=== PATIENT | female | born 1990 | race Caucasian/White ===

== ENCOUNTER 2017-01-21 17:19 | Inpatient (IN) | payer BC ==
[2017-01-21] VITALS (71 sets, daily range): BP systolic 124–186; BP diastolic 65–120; PULSE 70–85; RESP 13–20; TEMP 98.9; O2SAT 96–100
[~2017-01-21] VITALS: Ht 165.1 cm; Wt 122.5 kg
[2017-01-21] MEDS ORDERED: TERBUTALINE INJ 1 MG/ML AMP ONE (19:10)
[2017-01-21 19:39] LABS: BACTERIA, URINE OCC /hpf; BLOOD, URINE NEG (NEG); COMMENT (UR) CULT NOT INDICATED; CULTURE IF INDICATED CULT NOT INDICATED; GLUCOSE,URINE NEG (NEG); KETONE, URINE NEG (NEG); MUCUS URINE FEW /lpf (OCC); NITRITE,URINE NEG (NEG); PH, URINE 6.5 (5.0-8.5); SQUAMOUS EPITHELIAL CELL URINE 2 /hpf (0-5); URINE COLOR LIGHT-YELLOW (YELLW/STRAW)
--- NOTE | 2017-01-21 20:04 | PD ---
HPI Chief Complaint Abdominal pain 1 day Chest pain 1 day 36 weeks Date Seen: Jan 21, 2017 Time Seen: 19:00 Travel History International Travel<30 Days: No Contact w/Intl Traveler<30Days: No Known Affected Area: No History of Present Illness HPI 26 yo at 36 weeks. EDC 02-18-[address] Jewell. Pt presents with c/o abdominal pain and chest pain last night. Constant, dull. Eased off some last night and pt was able to sleep. This morning pain returned. No vaginal bleeding or leaking. Denies headaches, vision changes or RUQ pain. BPs noted to be elevated 150-160 systolic and diastolics 90s. Pt states at her last office visit last week, proteinuria was noted and pt was asked to complete 24 hour urine collection for total protein and clearance. There was a mistake with the requisition and lab was not completed. Pt had prior C Section and is scheduled for repeat LTCS 02-12-2017. Weeks Gestation: 36 Para: 1 : 2 History Past Medical History Narrative Medical Elevated BMI Obstetric History Obstetric History Previous C Section Past Surgical History Narrative Surgical Herniated lumbar disc surgery 03/2009 [facility] [place] Cholecystectomy 2012 Family History Family History: Negative Social History Alcohol Use: No Tobacco Use: No Substance Abuse: No Allergies-Medications (Allergen,Severity, Reaction): Coded Allergies: No Known Allergies (Unverified , 01/21/17) Review of Systems Except as stated in HPI: all other systems reviewed are Neg Physical Exam Vital Signs Date Time Temp Pulse Resp B/P (MAP) Pulse Ox O2 Delivery O2 Flow Rate FiO2 01/21/17 17:24 98.9 84 13 186/120 (142) 96 Narrative GENERAL: Well-nourished, well-developed patient. SKIN: Warm and dry. HEAD: Normocephalic and atraumatic. EYES: No scleral icterus. No injection or drainage. ENT: No nasal drainage noted. Mucous membranes pink. Airway patent. NECK: Supple, trachea midline. No JVD. CARDIOVASCULAR: Regular rate and rhythm without murmurs, gallops, or rubs. RESPIRATORY: Breath sounds equal bilaterally. No accessory muscle use. BREASTS: Bilateral exam showed no masses , no retractions, no nipple discharge. ABDOMEN/GI: Abdomen soft, non-tender, bowel sounds present, no rebound, no guarding Gravid to [36] weeks size GENITOURINARY: External Genitalia: intact and normal in appearance Cervix: [soft] Dilatation: [closed] Effacement: [30%] Station: [-3] Presentation: [-] Membranes: [intact] Uterine Contractions: [every 3 minutes] FHT's: Category: [1] Baseline: [130s] Reactive: [-] Variability: [moderate] Decels: [none] EXTREMITIES: No cyanosis or edema. BACK: Nontender without obvious deformity. No CVA tenderness. NEUROLOGICAL: Awake and alert. Motor and sensory grossly within normal limits. Five out of 5 muscle strength in all muscle groups. Normal speech. Patella DTRs wnl, no ankle clonus, trace pedal edema. Data Data Vital Signs Reviewed: Yes Orders Orders Electrocardiogram (01/21/17 17:32) Complete Blood Count With Diff (01/21/17 17:32) Basic Metabolic Panel (Bmp) (01/21/17 17:32) Ckmb (Isoenzyme) Profile (01/21/17 17:32) Troponin I (01/21/17 17:32) Vital Signs (Adult) .ON ADMISSION (01/21/17 19:02) ^ Labor Status (01/21/17 19:02) Urinalysis - C+S If Indicated (01/21/17 19:02) Diet Liquid (01/22/17 Breakfast) Terbutaline Inj (Brethine Inj) (01/21/17 19:10) Labs Laboratory Tests Test 01/21/17 18:55 Urine Color LIGHT-YELLOW Urine Turbidity CLEAR Urine pH 6.5 Urine Specific [place] 1.012 Urine Protein 100 Urine Glucose (UA) NEG Urine Ketones NEG Urine Occult Blood NEG Urine Nitrite NEG Urine Bilirubin NEG Urine Urobilinogen LESS THAN 2.0 Urine Leukocyte Esterase TRACE Urine RBC LESS THAN 1 Urine WBC 1 Urine Squamous Epithelial Cells 2 Urine Bacteria OCC Urine Mucus FEW Microscopic Urinalysis Comment CULT NOT INDICATED MDM Medical Record Reviewed: Yes Plan 26 yo at 36 weeks . Presents with chest pain and abdominal pain. Chest pain 'ruled out' in ER prior to arrival on L&D. contractions noted, no cervical dilatation. Plan IV hydration, and Terbulatine 0.25mg SCx 1 Also Pepcid 20mg IV x 1 BP elevated, and PIH panel/Urine protein/Creatinine ratio sent. Normal DTRs/ no ankle clonus, trace pedal edema. Labs were reviewed and AST 58, ALT 60 with urine protein 100. Uric Acid is 6.5. Urine protein/ Creatinine ratio is still pending. Pt is scheduled for repeat C Section at [address] Salter. Plan is to start Magnessium sulphate for eclampsia prophylaxis, and plan for C section in AM. NPO post midnight. Diagnosis Diagnosis: Primary Impression: with 36 completed weeks gestation Additional Impressions: Abdominal pain affecting Chest pain Pre-eclampsia Andrea Marrufo MD Jan 21, 2017 20:04
[2017-01-21 20:27] LABS: AUTOMATED NEUTROPHIL # 11.7 TH/MM3 (1.8-7.7); BASOPHIL # 0.1 TH/MM3 (0-0.2); BASOPHIL % 0.4 % (0.0-2.0); EOSINOPHIL # 0.1 TH/MM3 (0-0.4); EOSINOPHIL % 0.5 % (0.0-4.0); HEMATOCRIT 36.5 % (35.0-46.0); HEMO FLAGS DIFF FINAL; LYMPH % 20.7 % (9.0-44.0); LYMPHOCYTE # 3.3 TH/MM3 (1.0-4.8); MEAN CELL VOLUME 84.7 FL (80.0-100.0); MEAN CORPUSCULAR HEMOGLOBIN 27.6 PG (27.0-34.0); MEAN CORPUSCULAR HGB CONC 32.5 % (32.0-36.0); MONO % 4.6 % (0.0-8.0); NEUT % 73.8 % (16.0-70.0); PLATELET COUNT 228 TH/MM3 (150-450); RED BLOOD COUNT 4.31 MIL/MM3 (4.00-5.30); RED CELL DISTRIBUTION WIDTH 16.3 % (11.6-17.2); WHITE BLOOD COUNT 15.9 TH/MM3 (4.0-11.0)
[2017-01-21 20:57] LABS: ANION GAP 10 MEQ/L (5-15); BICARBONATE 22.5 MEQ/L (21.0-32.0); BLOOD UREA NITROGEN 9 MG/DL (7-18); CHLORIDE 106 MEQ/L (98-107); GLOMERULAR FILTRATION RATE 87 ML/MIN (>89); POTASSIUM 3.8 MEQ/L (3.5-5.1); SODIUM (NA) 138 MEQ/L (136-145)
[2017-01-21] MEDS ORDERED: FAMOTIDINE 20 MG/2 ML VIAL IV PUSH SCH (21:00)
[2017-01-21 21:13] LABS: CREATINE KINASE 34 U/L (26-192)
[2017-01-21 21:42] LABS: URIC ACID 6.5 MG/DL (2.6-6.0)
[2017-01-21] MEDS ORDERED: LABETALOL HCL 100 MG/20 ML VIAL IV PUSH ONE (22:00)
[2017-01-21] MEDS ORDERED: LACTATED RINGER'S 1000 ML INJ 1,000 ML IV PRN (22:02)
[2017-01-21] MEDS: LACTATED RINGER'S 1000 ML INJ 1,000 ML IV SCH ×2 (22:02→22:30)
[2017-01-21] MEDS ORDERED: MINERAL OIL 10 ML VIAL TOPICAL PRN (22:15)
[2017-01-21] MEDS ORDERED: LABETALOL HCL 100 MG/20 ML VIAL IV PUSH PRN (22:15)
[2017-01-21] MEDS ORDERED: MAGNESIUM SULFATE 4 GM PREMIX 100 ML IV ONE (22:15)
[2017-01-21] MEDS ORDERED: LIDOCAINE HCL 1% 50 ML VIAL INFIL PRN (22:15)
[2017-01-21] MEDS ORDERED: CALCIUM GLUCONATE 10% 1 GM/10 ML VIAL IV PUSH PRN (22:15)
[2017-01-21] MEDS ORDERED: LIDOCAINE HCL 1% 50 ML VIAL I-DERMAL PRN (22:15)
[2017-01-21] MEDS ORDERED: SODIUM CHLORID 0.9% 500 ML INJ 500 ML IV PRN (22:15)
[2017-01-21] MEDS ORDERED: OXYTOCIN 30 UNITS-500ML PREMIX 500 ML IV ONE (22:15)
[2017-01-21] MEDS ORDERED: ONDANSETRON HCL 4 MG/2 ML VIAL IV PUSH PRN (22:15)
[2017-01-21] MEDS ORDERED: ACETAMINOPHEN 325 MG TAB PO PRN (22:15)
[2017-01-21] MEDS ORDERED: CITRIC ACID-SODIUM CITRATE LIQ 30 ML UDC PO SCH (22:15)
[2017-01-21] MEDS ORDERED: SODIUM CHLORIDE 0.9% FLUSH 5 ML FLUSH IV FLUSH PRN (22:15)
--- NOTE | 2017-01-21 22:30 | HHI.HP ---
HPI Chief Complaint 36 week IUP Abdominal pain/Chest pain 1 day Elevated BP Travel History International Travel<30 Days: No Contact w/Intl Traveler<30Days: No Known Affected Area: No History of Present Illness HPI 26 yo at 36 weeks. EDC 02-18-[address] Jewell. Pt presents with c/o abdominal pain and chest pain last night. Constant, dull. Eased off some last night and pt was able to sleep. This morning pain returned. No vaginal bleeding or leaking. Denies headaches, vision changes or RUQ pain. BPs noted to be elevated 150-160 systolic and diastolics 90s. Pt states at her last office visit last week, proteinuria was noted and pt was asked to complete 24 hour urine collection for total protein and clearance. There was a mistake with the requisition and lab was not completed. Pt had prior C Section and is scheduled for repeat LTCS 02-12-2017. Testing came back with elevated AST, ALT, Uric Acid and Urine protein 100, Blood pressures remained elevated with systolic 15-160 and diastolic 90s. Diagnosis of pre-eclampsia formed. Discussed with Dr sheehan, and plan is to start admit Magnesium Sulphate for eclampsia prophylaxis, and schedule for C Section in AM, if stable overnight,. Weeks Gestation: 36 Para: 1 : 2 History Past Medical History Narrative Medical Obesity Obstetric History Obstetric History Previous C Section. Past Surgical History Narrative Surgical [place] [facility] [place], Lumbar herniated disc surgery 2008. Social History Alcohol Use: No Tobacco Use: No Substance Abuse: No Allergies-Medications (Allergen,Severity, Reaction): Coded Allergies: No Known Allergies (Unverified , 01/21/17) Review of Systems Except as stated in HPI: all other systems reviewed are Neg Physical Exam Vital Signs Date Time Temp Pulse Resp B/P (MAP) Pulse Ox O2 Delivery O2 Flow Rate FiO2 01/21/17 21:30 72 20 100 01/21/17 21:25 71 100 01/21/17 21:25 73 01/21/17 21:20 70 01/21/17 21:20 70 100 01/21/17 21:16 75 163/93 (116) 01/21/17 21:15 72 01/21/17 21:15 72 100 01/21/17 21:05 74 01/21/17 21:01 77 165/87 (113) 01/21/17 21:00 75 01/21/17 20:55 71 01/21/17 20:52 18 01/21/17 20:50 74 01/21/17 20:46 73 174/87 (116) 01/21/17 20:45 18 01/21/17 20:45 74 01/21/17 20:40 79 01/21/17 20:35 72 01/21/17 20:31 71 166/82 (110) 01/21/17 20:30 18 01/21/17 20:30 77 01/21/17 20:25 79 01/21/17 20:20 74 01/21/17 20:16 80 142/67 (92) 01/21/17 20:15 80 01/21/17 19:15 18 01/21/17 19:14 78 168/92 (117) 01/21/17 19:10 78 01/21/17 19:05 80 01/21/17 19:00 82 01/21/17 17:24 98.9 84 13 186/120 (142) 96 Narrative GENERAL: Well-nourished, well-developed patient. SKIN: Warm and dry. HEAD: Normocephalic and atraumatic. EYES: No scleral icterus. No injection or drainage. ENT: No nasal drainage noted. Mucous membranes pink. Airway patent. NECK: Supple, trachea midline. No JVD. CARDIOVASCULAR: Regular rate and rhythm without murmurs, gallops, or rubs. RESPIRATORY: Breath sounds equal bilaterally. No accessory muscle use. BREASTS: Bilateral exam showed no masses , no retractions, no nipple discharge. ABDOMEN/GI: Abdomen soft, non-tender, bowel sounds present, no rebound, no guarding Gravid to [36] weeks size Fundal Height: [-] GENITOURINARY: External Genitalia: intact and normal in appearance Cervix: [soft] Dilatation: [closed] Effacement: [50%] Station: [-2] Presentation: [vertex] Membranes: [intact] Uterine Contractions: [none] FHT's: Category: [1] Baseline: [130] Reactive: [-] Variability: [moderate] Decels: [none] EXTREMITIES: No cyanosis or edema. BACK: Nontender without obvious deformity. No CVA tenderness. NEUROLOGICAL: Awake and alert. Motor and sensory grossly within normal limits. Five out of 5 muscle strength in all muscle groups. Normal speech. Caprini VTE Risk Assessment Caprini VTE Risk Assessment: No/Low Risk (score <= 1) Caprini Risk Assessment Model Point Value = 1 Point Value = 2 Point Value = 3 Point Value = 5 Age 41-60 Minor surgery BMI > 25 kg/m2 Swollen legs Varicose veins or History of unexplained or recurrent spontaneous Oral contraceptives or hormone replacement Sepsis (< 1 month) Serious lung disease, including pneumonia (< 1 month) Abnormal pulmonary function Acute myocardial infarction Congestive heart failure (< 1 month) History of inflammatory bowel disease Medical patient at bed rest Age 61-74 Arthroscopic surgery Major open surgery (> 45 min) Laparoscopic surgery (> 45 min) Malignancy Confined to bed (> 72 hours) Immobilizing plaster cast Central venous access Age >= 75 History of VTE Family history of VTE Factor V Leiden Prothrombin [id number] Lupus anticoagulant Anticardiolipin antibodies Elevated serum homocysteine Heparin-induced thrombocytopenia Other congenital or acquired thrombophilia Stroke (< 1 month) Elective arthroplasty Hip, pelvis, or leg fracture Acute spinal cord injury (< 1 month) Prophylaxis Regimen Total Risk Factor Score Risk Level Prophylaxis Regimen 0-1 Low Early ambulation 2 Moderate Order ONE of the following: *Sequential Compression Device (SCD) *Heparin 5000 units SQ BID 3-4 Higher Order ONE of the following medications: *Heparin 5000 units SQ TID *Enoxaparin/Lovenox 40 mg SQ daily (WT < 150 kg, CrCl > 30 mL/min) *Enoxaparin/Lovenox 30 mg SQ daily (WT < 150 kg, CrCl > 10-29 mL/min) *Enoxaparin/Lovenox 30 mg SQ BID (WT < 150 kg, CrCl > 30 mL/min) AND/OR *Sequential Compression Device (SCD) 5 or more Highest Order ONE of the following medications: *Heparin 5000 units SQ TID (Preferred with Epidurals) *Enoxaparin/Lovenox 40 mg SQ daily (WT < 150 kg, CrCl > 30 mL/min) *Enoxaparin/Lovenox 30 mg SQ daily (WT < 150 kg, CrCl > 10-29 mL/min) *Enoxaparin/Lovenox 30 mg SQ BID (WT < 150 kg, CrCl > 30 mL/min) AND *Sequential Compression Device (SCD) Data Data Orders Orders Electrocardiogram (01/21/17 17:32) Complete Blood Count With Diff (01/21/17 17:32) Basic Metabolic Panel (Bmp) (01/21/17 17:32) Ckmb (Isoenzyme) Profile (01/21/17 17:32) Troponin I (01/21/17 17:32) Vital Signs (Adult) .ON ADMISSION (01/21/17 19:02) ^ Labor Status (01/21/17 19:02) Urinalysis - C+S If Indicated (01/21/17 19:02) Terbutaline Inj (Brethine Inj) (01/21/17 19:10) Famotidine Inj (Pepcid Inj) (01/21/17 21:00) Vital Signs (Adult) .ON ADMISSION (01/21/17 20:18) ^ Labor Status (01/21/17 20:18) ^ Non Stress Test (01/21/17:18) Protein Creat Ratio, Random Ur (01/21/17 20:58) Ast (Sgot) (01/21/17 21:12) Alt (Sgpt) (01/21/17 21:12) Uric Acid (01/21/17 21:12) Labetalol Inj (Trandate Inj) (01/21/17 22:00) Admit To Inpatient (01/21/17 ) Code Status (01/21/17 22:02) Vital Signs (Adult) .Per protocol (01/21/17 22:02) Heart (01/21/17 22:02) Amnioinfusion (01/21/17 22:02) Urinary Catheter Management .ONCE (01/21/17 22:02) Diet Npo (01/22/17 Breakfast) Lactated Ringer's 1000 Ml Inj (Lr 1000 M (01/21/17 22:02) Lactated Ringer's 1000 Ml Inj (Lr 1000 M (01/21/17 22:02) Sodium Chlorid 0.9% 500 Ml Inj (Ns 500 M (01/21/17 22:15) Sodium Chlor 0.9% 1000 Ml Inj (Ns 1000 M (01/21/17 23:00) Lidocaine 1% Inj (50 Ml) (Xylocaine 1% I (01/21/17 22:15) Citric Acid-Sodium Citrate Liq (Bicitra (01/21/17 22:15) Fentanyl Inj (Fentanyl Inj) (01/21/17 22:15) Fentanyl Inj (Fentanyl Inj) (01/21/17 22:15) Hold Clot (01/21/17 22:02) Abo/Rh Blood Type (01/21/17 22:02) Type And Screen (01/21/17 22:02) Resp Oxygen Non Rebreathe Mask (01/21/17 ) ^ Epidural / Intrathecal Infus (01/21/17 22:02) Oxytocin 30 Units-500ml Premix (Pitocin (01/21/17 22:15) Lidocaine 1% Inj (50 Ml) (Xylocaine 1% I (01/21/17:15) Light Mineral Oil (Muri-Lube Oil) (01/21/17 22:15) Inpatient Certification (01/21/17 ) Activity Bed Rest (01/21/17 22:02) Intake + Output Q1H (01/21/17 22:02) Heart CONTINUOUS (01/21/17 22:02) ^ Check Deep Tendon Reflexes Q1H (01/21/17 22:02) Lactated Ringer's 1000 Ml Inj (Lr 1000 M (01/21/17 22:02) Sodium Chloride 0.9% Flush (Ns Flush) (01/21/17 22:15) Sodium Chloride 0.9% Flush (Ns Flush) (01/22/17 09:00) Magnesium Sulfate 40 Gm Premix (Magnesiu (01/21/17 22:02) Labetalol Inj (Trandate Inj) (01/21/17 22:15) Calcium Gluconate Inj (Calcium Gluconate (01/21/17 22:15) Acetaminophen (Tylenol) (01/21/17 22:15) Ondansetron Inj (Zofran Inj) (01/21/17 22:15) Hepatic Functional Panel (01/22/17 06:00) Cbc No Diff, Includes Plts (01/22/17 06:00) Uric Acid (01/22/17 06:00) Magnesium Sulfate 4 Gm Premix (Magnesium (01/21/17 22:15) Ob (2e) Additional Admit Info (01/21/17 22:13) Labs Laboratory Tests Test 01/21/17 18:55 01/21/17 20:00 Urine Color LIGHT-YELLOW Urine Turbidity CLEAR Urine pH 6.5 Urine Specific [place] 1.012 Urine Protein 100 Urine Glucose (UA) NEG Urine Ketones NEG Urine Occult Blood NEG Urine Nitrite NEG Urine Bilirubin NEG Urine Urobilinogen LESS THAN 2.0 Urine Leukocyte Esterase TRACE Urine RBC LESS THAN 1 Urine WBC 1 Urine Squamous Epithelial Cells 2 Urine Bacteria OCC Urine Mucus FEW Microscopic Urinalysis Comment CULT NOT INDICATED White Blood Count 15.9 Red Blood Count 4.31 Hemoglobin 11.9 Hematocrit 36.5 Mean Corpuscular Volume 84.7 Mean Corpuscular Hemoglobin 27.6 Mean Corpuscular Hemoglobin Concent 32.5 Red Cell Distribution Width 16.3 Platelet Count 228 Mean Platelet Volume 9.1 Neutrophils (%) (Auto) 73.8 Lymphocytes (%) (Auto) 20.7 Monocytes (%) (Auto) 4.6 Eosinophils (%) (Auto) 0.5 Basophils (%) (Auto) 0.4 Neutrophils # (Auto) 11.7 Lymphocytes # (Auto) 3.3 Monocytes # (Auto) 0.7 Eosinophils # (Auto) 0.1 Basophils # (Auto) 0.1 CBC Comment DIFF FINAL Differential Comment Blood Urea Nitrogen 9 Creatinine 0.80 Random Glucose 79 Calcium Level 9.4 Sodium Level 138 Potassium Level 3.8 Chloride Level 106 Carbon Dioxide Level 22.5 Anion Gap 10 Estimat Glomerular Filtration Rate 87 Uric Acid 6.5 Aspartate Amino Transf (AST/SGOT) 58 Alanine Aminotransferase (ALT/SGPT) 60 Total Creatine Kinase 34 Troponin I LESS THAN 0.02 Assessment/Plan Problem List: (1) Pre-eclampsia ICD Codes: O14.90 - Unspecified pre-eclampsia, unspecified trimester Status: Acute (2) Chest pain ICD Codes: R07.9 - Chest pain, unspecified Status: Acute (3) Abdominal pain affecting ICD Codes: O26.899 - Other specified related conditions, unspecified trimester; R10.9 - Unspecified abdominal pain Status: Acute (4) with 36 completed weeks gestation ICD Codes: Z3A.36 - 36 weeks gestation of ; R10.9 - Unspecified abdominal pain Status: Acute Assessment and Plan Admit inpatient. Mag Sulphate for eclampsia prophylaxis. Previous C Section. Will order limited OB US in AM. Repeat [facility] labs in AM. Plan for C Section in AM, NPO after midnight. Andrea Marrufo MD Jan 21, 2017 22:30
[2017-01-21] MEDS: MAGNESIUM SULFATE 40 GM PREMIX 1,000 ML IV SCH (22:31)
[2017-01-21] MEDS ORDERED: SODIUM CHLOR 0.9% 1000 ML INJ 1,000 ML IV PRN (23:00)
[2017-01-21] MEDS ORDERED: PREN29TA PO (23:31)
[2017-01-22] VITALS (111 sets, daily range): BP systolic 123–161; BP diastolic 71–95; PULSE 18–91; RESP 18; TEMP 97.8–98; O2SAT 100
[2017-01-22] MEDS ORDERED: ceFAZolin 2 GM PREMIX 50 ML IV SCH (00:45)
[2017-01-22] MEDS: LACTATED RINGER'S 1000 ML INJ 1,000 ML IV SCH ×2 (05:07→11:22)
[2017-01-22 05:58] LABS: HEMATOCRIT 32.8 % (35.0-46.0); MEAN CELL VOLUME 84.3 FL (80.0-100.0); MEAN CORPUSCULAR HEMOGLOBIN 28.7 PG (27.0-34.0); MEAN CORPUSCULAR HGB CONC 34.1 % (32.0-36.0); PLATELET COUNT 187 TH/MM3 (150-450); RED CELL DISTRIBUTION WIDTH 16.5 % (11.6-17.2); REVIEW FLAG FINAL; WHITE BLOOD COUNT 12.6 TH/MM3 (4.0-11.0)
[2017-01-22 06:24] LABS: URIC ACID 6.3 MG/DL (2.6-6.0)
[2017-01-22 06:26] LABS: INDIRECT BILIRUBIN 0.3 MG/DL (0.0-0.8); TOTAL BILIRUBIN ADULT 0.4 MG/DL (0.2-1.0)
[2017-01-22] MEDS ORDERED: SODIUM CHLORIDE 0.9% FLUSH 5 ML FLUSH IV FLUSH SCH (09:00)
[2017-01-22] MEDS ORDERED: ceFAZolin INJ 1,000 MG VIAL ONE (09:38)
[2017-01-22] MEDS ORDERED: SODIUM BICARBONATE 8.4% INJ 50 MEQ/50 ML SYR ONE ×2 (09:59→10:01)
[2017-01-22] MEDS ORDERED: EPIDURAL-DO NOT ADMINISTER ANTICOAGULANTS PRN (10:30)
[2017-01-22] MEDS ORDERED: EPIDURAL-NO SYSTEMIC NARCOTICS PRN (10:30)
[2017-01-22] MEDS ORDERED: EPIDURAL-NALOXONE HCL 0.4 MG/ML AMP IV PUSH PRN (10:30)
[2017-01-22] MEDS ORDERED: EPIDURAL-DIPHENHYDRAMINE HCL 50 MG/ML VIAL IV PUSH PRN (10:30)
[2017-01-22] MEDS ORDERED: EPIDURAL-DIPHENHYDRAMINE HCL 50 MG CAP PO PRN (10:30)
[2017-01-22] MEDS ORDERED: LACTATED RINGER'S 1000 ML INJ 1,000 ML IV ONE (11:00)
--- NOTE | 2017-01-22 11:14 | PD.OB.DELI ---
Procedure Note Section Procedure Pre Op Diagnosis: (1) Severe pre-eclampsia (2) Morbid obesity with BMI of 50.0-59.9, adult (3) Encounter for sterilization (4) with 36 completed weeks gestation Post Op Diagnosis: (1) Severe pre-eclampsia (2) Morbid obesity with BMI of 50.0-59.9, adult (3) Encounter for sterilization (4) with 36 completed weeks gestation Performed by Bhumi Zaman Procedure: Repeat Low Transverse Sec (and darcie BTL) Indication for delivery: Desired elective repeat , Maternal medical problems (severe preeclampsia) Previous condition: None Informed consent obtained: For anesthesia, For procedure Confirmed correct: Patient, Procedure, Site, Time-out taken Anesthesia: Epidural Medication prior to procedure: As documented in eMAR Monitoring during procedure: Blood pressure monitoring, Pulse oximetry Urinary catheter: ml urine output (150) Sterile preparation: With 2% chlorexidine (Hibiclens) Operative Features Skin Incision: Pfannenstiel Uterine Incision: Low transverse w/knife / blunt ext Membranes Ruptured: Artificially, Amount of liquid (moderate), Appearance of fluid (clear) Presentation: Vertex Delivery date: Jan 22, 2017 Delivery time: 10:17 Delivery of infant: Uneventful Infant: Male One Minute : 6 Five Minute : 8 Weight: 2030g Status of : Viable, Cord blood, Umbilical cord, Nursery present Placenta delivered: Intact, Sent to pathology Medications: Antibiotics, Oxytocin Estimated blood loss: 500ml Procedure tolerated: Well Baby Complications: Hypoxia Condition: Fair, Other (taken to nicu) Procedure in detail dictated Bhumi Zaman MD Jan 22, 2017 11:14
[2017-01-22] MEDS ORDERED: SIMETHICONE 80 MG CHEWABLE TAB PO PRN (11:15)
[2017-01-22] MEDS ORDERED: oxyCODONE/ACETAMINOPHEN 5 MG/325 MG TAB PO PRN (11:15)
[2017-01-22 11:28] LABS: BLOOD GAS BASE EXCESS -2.4 mmol/L (-2-2); BLOOD GAS O2 HGB SATURATION 24 % (90-100); CORD BLOOD GAS HCO3 23 mmol/L (21-29); CORD BLOOD GAS PCO2 43 mmHG (34-78); CORD BLOOD GAS PH 7.34 (7.14-7.42); CORD BLOOD GAS PO2 14 mmHG (3.0-40.0); DRAW SITE CORD BLOOD; STAT NO
[2017-01-22] MEDS ORDERED: ACETAMINOPHEN 1000 MG/100 ML 100 ML IV ONE ×2 (11:30→11:58)
[2017-01-22] MEDS ORDERED: DEXAMETHASONE SOD PHOS 4 MG/ML VIAL IV ONE (12:00)
[2017-01-22] MEDS ORDERED: OXYTOCIN 10 UNIT/ML AMP IV ONE (12:00)
[2017-01-22] MEDS ORDERED: MORPHINE SULFATE PF 5 MG/10 ML VIAL ONE (12:00)
[2017-01-22] MEDS ORDERED: ONDANSETRON HCL 4 MG/2 ML VIAL IV PUSH ONE (12:00)
[2017-01-22] MEDS ORDERED: PHENYLEPH/NS 1000 MCG/10 ML SYR IV ONE (12:00)
[2017-01-22] MEDS ORDERED: LIDOCAINE 2%/EPINEPHrine PF 1:200,000 20ML SDV OTHER ONE (12:00)
[2017-01-22] MEDS ORDERED: OXYTOCIN 30 UNITS-500ML PREMIX 500 ML ONE (12:02)
--- NOTE | 2017-01-22 12:28 | EKG ---
Date Performed: 01/21/2017 Time Performed: 17:41:27 PTAGE: 26 years EKG: Sinus rhythm VOLTAGE CRITERIA FOR LVH ABNORMAL ECG NO PREVIOUS TRACING DOCTOR: Mac Moore Interpretating Date/Time 01/22/2017 12:26:56
--- NOTE | 2017-01-22 12:35 | MP ---
cc: BHUMI ZAMAN MD DATE OF SURGERY: 01/22/2017 PREOPERATIVE DIAGNOSIS Intrauterine at 36-weeks, severe preeclampsia, morbid obesity, undesired fertility. POSTOPERATIVE DIAGNOSIS Intrauterine at 36-weeks, severe preeclampsia, morbid obesity, undesired fertility. PROCEDURE Repeat low transverse delivery with [place] bilateral tubal ligation. SURGEON Bhumi Zaman MD [employer] [place] staff. INDICATION The patient is a 26-year-old para 1 with intrauterine at 36-weeks, presented to the main ED with chest pain. She was cleared from a cardiac standpoint but was noted to have a severe range of blood pressure 180s over 120. She was then transferred to labor and delivery for further evaluation and management. Her labs were significant for an elevated liver function and uric acid. The patient was having epigastric pain. Her blood pressures were controlled with magnesium drip and Labetalol IV x 1 at the time of delivery. She had undesired fertility and did desire to proceed with a tubal ligation. Consents are signed and on the chart. ANESTHESIA Epidural. IV FLUIDS 2200 mL of lactated Ringer. URINE OUTPUT 150 mL. ESTIMATED BLOOD LOSS 500 mL. COMPLICATIONS None. COUNTS Correct x3. SPECIMEN Placenta. Cord blood. Cord gases. ANTIBIOTIC PROPHYLAXIS Ancef 3 grams IV given pre-incision. DVT PROPHYLAXIS SCDs to bilateral extremities. INTRAOPERATIVE FINDINGS Viable male infant with Apgars of 6 and 8 at 1 minute and 5 minutes, respectively. weight 2030 grams. Nursery present, the baby needed extra oxygen. Placenta was small and grade 3 with multiple calcifications, intact three-vessel cord. Uterus, tubes and ovaries within normal limits. Minimal scarring of the subcutaneous tissue and fascia. No scarring intra-abdominally. PROCEDURE IN DETAIL After giving informed consent, the patient was taken to the operating room where spinal was unsuccessful. She did require an epidural for anesthesia. Mata was already in place. Her abdomen was prepped and draped with 2% chlorhexidine. A Retentus was used for aid in retraction given her body habitus. There was some erythema and excoriation at her prior delivery scar. The current Pfannenstiel incision was made approximately 2 cm above the prior incision to avoid risk of infection. A Pfannenstiel skin incision was made with a scalpel, carried down to underlying layer of fascia with the Bovie. The fascia was incised in the midline with the Bovie and extended with Millan scissors. There is a bleeding vessel on the edge of the fascia. This was cauterized with Bovie. There is also a bleeding vessel on the left rectus muscle bed superiorly, this was cauterized with the Bovie as well. Good hemostasis was noted. The rectus muscles were scored in the midline. The hemostats were used to fully separate the rectus muscles followed by delicate dissection in layers with the scalpel while tenting with Vi's, after the peritoneum was identified and no scarring was noted, this was entered sharply and suction was again performed, no adhesions were noted. The peritoneum was entered bluntly. The bladder blade was then inserted, good visualization of the lower uterine segment was noted. The uterus was noted to be small and fetus appeared to be small on palpation intra-abdominally. The bladder flap was developed with Metzenbaum scissors and further developed digitally. The bladder blade was reinserted. A low transverse uterine incision was made with scalpel to level of the amnion. The incision was extended bluntly. The amnion was entered bluntly and the head was flexed and brought to the level of the hysterotomy. Gentle fundal pressure was used to deliver the head. The rest of the body readily followed. The cord was doubly clamped and cut. Baby was handed off to awaiting nursery team. Segment of cord was sent for cord gases and cord blood was also collected. The placenta was removed with gentle cord traction uterine massage. All membranes were removed. The uterus was swept multiple times with a moist laparotomy sponge to insure no debris or membranes were retained. The uterus was closed with #1 Chromic in a running locked fashion. Attention was then turned to the tubal ligation. The left tube was grasped with [place] clamps approximately 4 cm from the cornual region, approximately 3 cm segment of tube was ligated in a [place] fashion. Good hemostasis was noted, both ostia were visualized. The same was repeated on the right side. The posterior cul-de-sac was irrigated and suctioned. The hysterotomy was inspected and noted to be hemostatic. The uterus was returned to the abdomen. Both tubal pedicles were inspected and noted to be hemostatic. Hysterotomy was also noted to be hemostatic. Irrigation and suction was performed in anterior cul-de-sac. The peritoneum was adhesed to the rectus muscles not allowing for closure of this layer. The fascia was closed with #1 Vicryl in a running fashion. The subcutaneous layer was irrigated and suctioned. Hemostasis was obtained with the Bovie. The subcutaneous layer was closed in two layers with 2-0 Chromic in a running fashion. The skin was closed with 3-0 Monocryl in a subcuticular fashion. A pressure dressing was placed. The patient will return to labor and delivery for further magnesium for 24 hours for seizure prophylaxis. She will have labs repeated every 8 hours. Bhumi Zaman MD PE/GEOVANNA /11:10 AM /12:02 PM
[2017-01-22 14:50] LABS: AUTOMATED NEUTROPHIL # 12.5 TH/MM3 (1.8-7.7); BASOPHIL % 0.1 % (0.0-2.0); EOSINOPHIL % 0.1 % (0.0-4.0); HEMATOCRIT 33.9 % (35.0-46.0); HEMO FLAGS DIFF FINAL; LYMPH % 8.6 % (9.0-44.0); LYMPHOCYTE # 1.2 TH/MM3 (1.0-4.8); MEAN CELL VOLUME 84.1 FL (80.0-100.0); MEAN CORPUSCULAR HEMOGLOBIN 28.5 PG (27.0-34.0); MEAN CORPUSCULAR HGB CONC 33.9 % (32.0-36.0); MONO % 1.7 % (0.0-8.0); NEUT % 89.5 % (16.0-70.0); PLATELET COUNT 191 TH/MM3 (150-450); RED BLOOD COUNT 4.04 MIL/MM3 (4.00-5.30); RED CELL DISTRIBUTION WIDTH 16.1 % (11.6-17.2)
[2017-01-22] MEDS ORDERED: FLUCONAZOLE 100 MG TAB PO ONE (15:00)
[2017-01-22] MEDS ORDERED: PILL SPLITTER OTHER PRN (15:00)
[2017-01-22] MEDS: LABETALOL HCL 200 MG TAB PO SCH ×2 (15:17→22:00)
[2017-01-22 15:22] LABS: ALKALINE PHOSPHATASE 171 U/L (45-117); ALT (GPT) 89 U/L (10-53); ANION GAP 11 MEQ/L (5-15); AST (GOT) 75 U/L (15-37); BICARBONATE 23.5 MEQ/L (21.0-32.0); BLOOD UREA NITROGEN 8 MG/DL (7-18); CHLORIDE 106 MEQ/L (98-107); GLOMERULAR FILTRATION RATE 102 ML/MIN (>89); POTASSIUM 4.1 MEQ/L (3.5-5.1); SODIUM (NA) 140 MEQ/L (136-145); TOTAL BILIRUBIN ADULT 0.3 MG/DL (0.2-1.0); URIC ACID 6.5 MG/DL (2.6-6.0)
[2017-01-22] MEDS: MAGNESIUM SULFATE 40 GM PREMIX 1,000 ML IV SCH (20:00)
[2017-01-22 22:17] LABS: ANION GAP 11 MEQ/L (5-15); AST (GOT) 62 U/L (15-37); BICARBONATE 23.4 MEQ/L (21.0-32.0); BLOOD UREA NITROGEN 7 MG/DL (7-18); CHLORIDE 104 MEQ/L (98-107); GLOMERULAR FILTRATION RATE 109 ML/MIN (>89); SODIUM (NA) 138 MEQ/L (136-145)
[2017-01-22 22:18] LABS: ALT (GPT) 76 U/L (10-53)
[2017-01-22 22:20] LABS: ALKALINE PHOSPHATASE 163 U/L (45-117); TOTAL BILIRUBIN ADULT 0.4 MG/DL (0.2-1.0); URIC ACID 6.4 MG/DL (2.6-6.0)
[2017-01-22 22:21] LABS: AUTOMATED NEUTROPHIL # 12.3 TH/MM3 (1.8-7.7); BASOPHIL % 0.1 % (0.0-2.0); HEMATOCRIT 32.2 % (35.0-46.0); HEMO FLAGS DIFF FINAL; LYMPH % 13.1 % (9.0-44.0); LYMPHOCYTE # 1.9 TH/MM3 (1.0-4.8); MEAN CELL VOLUME 84.3 FL (80.0-100.0); MEAN CORPUSCULAR HEMOGLOBIN 28.1 PG (27.0-34.0); MEAN CORPUSCULAR HGB CONC 33.3 % (32.0-36.0); MONO % 3.5 % (0.0-8.0); NEUT % 83.3 % (16.0-70.0); PLATELET COUNT 189 TH/MM3 (150-450); RED BLOOD COUNT 3.82 MIL/MM3 (4.00-5.30); RED CELL DISTRIBUTION WIDTH 16.1 % (11.6-17.2); WHITE BLOOD COUNT 14.7 TH/MM3 (4.0-11.0)
[2017-01-23] VITALS (20 sets, daily range): BP systolic 96–125; BP diastolic 53–79; PULSE 62–102; RESP 16–18; TEMP 97.6–98.5
[2017-01-23] MEDS: LACTATED RINGER'S 1000 ML INJ 1,000 ML IV SCH (00:42)
--- NOTE | 2017-01-23 07:52 | HHI.OB ---
Subjective Post Day: 1 Remarks PPD#1 s/p delivery due to PreEclampsia with severe features at 36 wks Objective Vitals/I&O Vital Signs Date Time Temp Pulse Resp B/P (MAP) Pulse Ox O2 Delivery O2 Flow Rate FiO2 01/23/17 07:02 78 118/72 (87) 01/23/17 06:16 63 120/79 (93) 01/23/17 05:00 18 01/23/17 04:46 64 113/64 (80) 01/23/17 04:01 64 120/67 (84) 01/23/17 04:00 18 01/23/17 03:16 65 124/73 (90) 01/23/17 02:31 65 121/71 (88) 01/23/17 02:00 18 01/23/17 01:46 63 119/65 (83) 01/23/17 01:01 66 116/67 (83) 01/23/17 01:00 18 01/23/17 00:16 67 119/71 (87) 01/23/17 00:00 18 01/22/17 23:31 70 123/73 (90) 01/22/17 22:50 18 01/22/17 22:46 70 134/79 (97) 01/22/17 22:01 77 147/76 (99) 01/22/17 22:00 18 01/22/17 21:07 71 126/73 (90) 01/22/17 21:00 18 01/22/17 20:16 78 133/77 (95) 01/22/17 20:00 18 01/22/17 19:00 98.0 18 01/22/17 17:00 88 151/84 (106) 01/22/17 16:27 91 152/88 (109) 01/22/17 16:00 152/88 (109) 01/22/17 16:00 91 01/22/17 15:00 84 155/87 (109) 01/22/17 14:00 155/85 (108) 01/22/17 13:00 74 18 161/84 (109) 01/22/17 12:30 74 159/82 (107) Objective Remarks GENERAL: Well-nourished, well-developed patient. Obese. CARDIOVASCULAR: Regular rate and rhythm without murmurs, gallops, or rubs. RESPIRATORY: Breath sounds equal bilaterally. No accessory muscle use. ABDOMEN/GI: Abdomen soft, non-tender. Incision: dry & intact Fundus: Firm, non-tender at umbilicus. GENITOURINARY: Light bleeding. EXTREMITIES: No cyanosis or edema, non-tender, without signs of DVT. Medications and IVs Current Medications Medications (Trade) Dose Ordered Sig/Shayy Route Start Time Stop Time Status Last Admin Sodium Chloride 500 ml @ 1,000 mls/hr ONCE PRN IV 01/21/17 22:15 02/10/17 22:14 Sodium Chloride 1,000 ml @ 100 mls/hr Q10H PRN IV 01/21/17 23:00 Lactated Ringer's 1,000 ml @ 75 mls/hr [id number] IV 01/21/17 22:02 01/23/17 00:42 Magnesium Sulfate 1,000 ml @ 50 mls/hr Q20H IV 01/21/17 22:02 01/22/17 20:00 (Calcium Gluconate Inj) 1 gm UNSCH PRN IV PUSH 01/21/17 22:15 (Tylenol) 650 mg Q4H PRN PO 01/21/17 22:15 01/22/17 01:50 (Zofran Inj) 4 mg Q6H PRN IV PUSH 01/21/17 22:15 (Mylicon Chew) 80 mg QID PRN PO 01/22/17 11:15 (Percocet 5-325 Mg) 1 tab Q4H PRN PO 01/22/17 11:15 (Percocet 5-325 Mg) 2 tab Q4H PRN PO 01/22/17 11:15 (Lesly-Colace) 2 tab Q12H PRN PO 01/22/17 11:15 (M-M-R Ii Inj) 0.5 ml ONCE ONCE SQ 01/23/17 16:00 01/23/17 16:01 (Boostrix Inj) 0.5 ml ONCE ONCE IM 01/23/17 16:00 01/23/17 16:01 Miscellaneous Information NO SYSTEMIC NARCOTICS TO BE GIVEN FO... UNSCH PRN .XX 01/22/17 10:30 01/23/17 10:29 (Narcan Inj) 0.4 mg UNSCH PRN IV PUSH 01/22/17 10:30 01/23/17 10:29 (Benadryl Inj) 25 mg Q6H PRN IV PUSH 01/22/17 10:30 01/23/17 10:29 01/22/17 13:56 (Benadryl) 50 mg Q6H PRN PO 01/22/17 10:30 01/23/17 10:29 Miscellaneous Information ALL NURSING DEPARTMENTS UNSCH PRN .XX 01/22/17 10:30 01/23/17 10:29 (Trandate) 200 mg Q12HR PO 01/22/17 15:00 01/22/17 22:00 (Pill Splitter) 1 ea UNSCH PRN OTHER 01/22/17 15:00 Assessment/Plan Problem List: (1) Pre-eclampsia ICD Codes: O14.90 - Unspecified pre-eclampsia, unspecified trimester Status: Acute Qualifiers: Qualified Codes: O14.93 - Unspecified pre-eclampsia, third trimester (2) Status post repeat low transverse section ICD Codes: Z98.891 - History of uterine scar from previous surgery (3) S/P tubal ligation ICD Codes: Z98.51 - Tubal ligation status (4) Chest pain ICD Codes: R07.9 - Chest pain, unspecified Status: Acute (5) Abdominal pain affecting ICD Codes: O26.899 - Other specified related conditions, unspecified trimester; R10.9 - Unspecified abdominal pain Status: Acute (6) with 36 completed weeks gestation ICD Codes: Z3A.36 - 36 weeks gestation of ; R10.9 - Unspecified abdominal pain Status: Acute Assessment and Plan PPD #1 s/p for PreEclampsia with severe features Magnesium sulfate will be done at 10am (24h); BPs improved markedly overnight, pt feeling better, denies HERZOG, vision changes, RUQ pain, edema improving; good UOP transition to PP today, ambulate, encourage shower & remove bandage this PM s/p tubal ligation at time of CD in NICU for prematurity anticipate d/c to home in 2 days Discharge Planning routine Lanny Jewell MD Jan 23, 2017 07:52
[2017-01-23] MEDS: oxyCODONE/ACETAMINOPHEN 5 MG/325 MG TAB PO PRN ×3 (09:34→20:51)
[2017-01-23] MEDS: LABETALOL HCL 200 MG TAB PO SCH ×2 (09:34→20:50)
[2017-01-23] MEDS ORDERED: MEASLES, MUMPS, RUBELLA VACCINE 0.5 ML VIAL SQ ONE (16:00)
[2017-01-23] MEDS ORDERED: DIPHTH/TETANUS/ACEL PERTUSSIS (BOOSTER) 0.5 ML VIAL/PFS IM ONE (16:00)
[2017-01-23] MEDS: IBUPROFEN 600 MG TAB PO PRN (20:51)
[2017-01-23] MEDS: DOCUSATE SODIUM 50 MG/SENNA 8.6 MG TAB PO PRN (20:52)
[2017-01-24 01:00] VITALS: BP 103/61; PULSE 72; RESP 18; TEMP 98.3
[2017-01-24 05:55] VITALS: BP 117/76; PULSE 72; RESP 18
[2017-01-24] MEDS: oxyCODONE/ACETAMINOPHEN 5 MG/325 MG TAB PO PRN (06:02)
[2017-01-24] MEDS: IBUPROFEN 600 MG TAB PO PRN ×3 (06:02→21:02)
[2017-01-24 07:50] VITALS: BP 109/82; PULSE 70; RESP 16
[2017-01-24] MEDS ORDERED: MULTIVIT/MIN/PREN/FOL AC/IRON PRENATAL TAB PO SCH (09:00)
--- NOTE | 2017-01-24 10:01 | HHI.OB ---
Subjective Post Operative Day: 2 Remarks POD#2, Felling well, no c/o; BPR 100-125/ 56-79 Objective Vitals/I&O Vital Signs Date Time Temp Pulse Resp B/P (MAP) Pulse Ox O2 Delivery O2 Flow Rate FiO2 01/24/17 05:55 117/76 (90) 01/24/17 05:55 72 18 01/24/17 01:00 98.3 72 18 103/61 (75) 01/23/17 20:20 97.7 78 18 125/79 (94) 01/23/17 16:00 97.8 86 16 109/66 (80) 01/23/17 12:00 97.6 01/23/17 12:00 74 16 96/57 (70) 01/23/17 10:02 102 113/53 (73) Result Diagram: 01/22/17211401/22/172114 Objective Remarks GENERAL: Well-nourished, well-developed patient. CARDIOVASCULAR: Regular rate and rhythm without murmurs, gallops, or rubs. RESPIRATORY: Breath sounds equal bilaterally. No accessory muscle use. ABDOMEN/GI: Abdomen soft, non-tender, bowel sounds present. Incision: Clean, dry and intact. Fundus: Firm, non-tender at umbilicus. GENITOURINARY: Light to moderate bleeding. EXTREMITIES: No cyanosis or edema, non-tender, without signs of DVT. Medications and IVs Current Medications Medications (Trade) Dose Ordered Sig/Shayy Route Start Time Stop Time Status Last Admin Sodium Chloride 500 ml @ 1,000 mls/hr ONCE PRN IV 01/21/17 22:15 02/10/17 22:14 (Calcium Gluconate Inj) 1 gm UNSCH PRN IV PUSH 01/21/17 22:15 (Tylenol) 650 mg Q4H PRN PO 01/21/17 22:15 01/22/17 01:50 (Zofran Inj) 4 mg Q6H PRN IV PUSH 01/21/17 22:15 (Mylicon Chew) 80 mg QID PRN PO 01/22/17 11:15 (Percocet 5-325 Mg) 1 tab Q4H PRN PO 01/22/17 11:15 01/24/17 06:02 (Percocet 5-325 Mg) 2 tab Q4H PRN PO 01/22/17 11:15 (Lelsy-Colace) 2 tab Q12H PRN PO 01/22/17 11:15 01/23/17 20:52 (Trandate) 200 mg Q12HR PO 01/22/17 15:00 01/23/17 20:50 (Pill Splitter) 1 ea UNSCH PRN OTHER 01/22/17 15:00 (Stuartnatal Plus 3 ) 1 tab DAILY PO 01/24/17 09:00 (Motrin) 600 mg Q6H PRN PO 01/23/17 18:00 01/24/17 06:02 Assessment/Plan Problem List: (1) Pre-eclampsia ICD Codes: O14.90 - Unspecified pre-eclampsia, unspecified trimester Status: Acute Qualifiers: Qualified Codes: O14.93 - Unspecified pre-eclampsia, third trimester (2) Status post repeat low transverse section ICD Codes: Z98.891 - History of uterine scar from previous surgery (3) S/P tubal ligation ICD Codes: Z98.51 - Tubal ligation status (4) Chest pain ICD Codes: R07.9 - Chest pain, unspecified Status: Acute (5) Abdominal pain affecting ICD Codes: O26.899 - Other specified related conditions, unspecified trimester; R10.9 - Unspecified abdominal pain Status: Acute (6) with 36 completed weeks gestation ICD Codes: Z3A.36 - 36 weeks gestation of ; R10.9 - Unspecified abdominal pain Status: Acute Assessment and Plan PPD #2 s/p for PreEclampsia with severe features stable with low BPs on labetalol, off magnesium sulfate. VTE risk,needs heparin 5000iu bid. plan discharge for tomorrow Discharge Planning routine Attending Attestation seen by Seth Beltrán MD Jan 24, 2017 10:01
[2017-01-24] MEDS: HEPARIN SODIUM - SQ 10,000 UNITS/ML VIAL SQ SCH ×2 (11:31→23:51)
[2017-01-24] MEDS: LABETALOL HCL 100 MG TAB PO SCH ×2 (11:31→21:00)
[2017-01-24 15:00] VITALS: BP 138/85; PULSE 68; RESP 18
[2017-01-24 20:30] VITALS: BP 120/78; PULSE 78; RESP 18; TEMP 98.2
[2017-01-24] MEDS: DOCUSATE SODIUM 50 MG/SENNA 8.6 MG TAB PO PRN (21:02)
[2017-01-24 23:50] VITALS: RESP 17
[2017-01-25 08:15] VITALS: BP 133/85; PULSE 76; RESP 18; TEMP 98.2
--- NOTE | 2017-01-25 08:37 | HHI.OB ---
Subjective Post Operative Day: 3 Remarks doing well, no HERZOG, BV or CP Objective Vitals/I&O Vital Signs Date Time Temp Pulse Resp B/P (MAP) Pulse Ox O2 Delivery O2 Flow Rate FiO2 01/24/17 23:50 17 01/24/17 20:30 98.2 78 18 01/24/17 20:30 120/78 (92) 01/24/17 15:00 68 18 138/85 (102) Result Diagram: 01/22/17211401/22/172114 Objective Remarks GENERAL: Well-nourished, well-developed patient. CARDIOVASCULAR: Regular rate and rhythm without murmurs, gallops, or rubs. RESPIRATORY: Breath sounds equal bilaterally. No accessory muscle use. ABDOMEN/GI: Abdomen soft, non-tender, bowel sounds present. Incision: Clean, dry and intact. Fundus: Firm, non-tender at umbilicus. GENITOURINARY: Light to moderate bleeding. EXTREMITIES: No cyanosis or edema, non-tender, without signs of DVT. Medications and IVs Current Medications Medications (Trade) Dose Ordered Sig/Shayy Route Start Time Stop Time Status Last Admin Sodium Chloride 500 ml @ 1,000 mls/hr ONCE PRN IV 01/21/17 22:15 02/10/17 22:14 (Calcium Gluconate Inj) 1 gm UNSCH PRN IV PUSH 01/21/17 22:15 (Tylenol) 650 mg Q4H PRN PO 01/21/17 22:15 01/22/17 01:50 (Zofran Inj) 4 mg Q6H PRN IV PUSH 01/21/17 22:15 (Mylicon Chew) 80 mg QID PRN PO 01/22/17 11:15 (Percocet 5-325 Mg) 1 tab Q4H PRN PO 01/22/17 11:15 01/24/17 06:02 (Percocet 5-325 Mg) 2 tab Q4H PRN PO 01/22/17 11:15 (Lesly-Colace) 2 tab Q12H PRN PO 01/22/17 11:15 01/24/17 21:02 (Pill Splitter) 1 ea UNSCH PRN OTHER 01/22/17 15:00 (Stuartnatal Plus 3 ) 1 tab DAILY PO 01/24/17 09:00 (Motrin) 600 mg Q6H PRN PO 01/23/17 18:00 01/24/17 21:02 (Heparin Inj) 5,000 units Q12H SQ 01/24/17 11:00 01/24/17 23:51 (Trandate) 100 mg Q12HR PO 01/24/17 10:15 01/24/17 11:31 Assessment/Plan Problem List: (1) Pre-eclampsia ICD Codes: O14.90 - Unspecified pre-eclampsia, unspecified trimester Status: Acute Qualifiers: Qualified Codes: O14.93 - Unspecified pre-eclampsia, third trimester (2) Status post repeat low transverse section ICD Codes: Z98.891 - History of uterine scar from previous surgery (3) S/P tubal ligation ICD Codes: Z98.51 - Tubal ligation status (4) Chest pain ICD Codes: R07.9 - Chest pain, unspecified Status: Acute (5) Abdominal pain affecting ICD Codes: O26.899 - Other specified related conditions, unspecified trimester; R10.9 - Unspecified abdominal pain Status: Acute (6) with 36 completed weeks gestation ICD Codes: Z3A.36 - 36 weeks gestation of ; R10.9 - Unspecified abdominal pain Status: Acute Assessment and Plan POD #3 s/p for PreEclampsia with severe features stable with low BPs on labetalol, off magnesium sulfate. VTE risk,needs heparin 5000iu bid. plan discharge for today Discharge Planning routine Attending Attestation pt seen by Peggy Bryson MD Jan 25, 2017 08:37
[2017-01-25] MEDS ORDERED: OXYC1TAB63 PO (08:40)
[2017-01-25] MEDS ORDERED: IBUP-232 PO (08:40)
[2017-01-25] MEDS ORDERED: LABE100T2 PO (08:40)
--- NOTE | 2017-01-25 08:40 | HHI.DCPOC ---
Discharge Care Plan Your Health Problems Are: Pelvic pain Report Symptoms to Your Doctor -Temperature above 100.5 degrees -Redness, of incision or excessive or foul smelling drainage -Unusual pain or calf pain -Increased vaginal bleeding -Painful or difficulty urinating -Feelings of extreme sadness or anxiety after 2 weeks Goals to Promote Your Health * To prevent worsening of your condition and complications * To maintain your health at the optimal level Directions to Meet Your Goals Take your medications as prescribed Follow your dietary instruction Follow activity as directed Ensure plenty of rest for recovery Drink fluids for hydration Keep your appointments as scheduled Take your immunizations and boosters as scheduled If your symptoms worsen call your PCP, if no PCP go to Urgent Care Center or Emergency Room Smoking is Dangerous to Your Health. Avoid second hand smoke Call the 24-hour crisis hotline for domestic abuse at Peggy Portillo MD Jan 25, 2017 08:40
[2017-01-25] MEDS: DOCUSATE SODIUM 50 MG/SENNA 8.6 MG TAB PO PRN (08:42)
[2017-01-25] MEDS: LABETALOL HCL 100 MG TAB PO SCH (08:42)
[2017-01-25] MEDS: IBUPROFEN 600 MG TAB PO PRN (08:43)
[2017-01-25] MEDS: HEPARIN SODIUM - SQ 10,000 UNITS/ML VIAL SQ SCH (11:02)
== END 2017-01-25 11:38 | disposition home or self-care (01) | DRG 765 ==
LOC: HOBED 17:19 → H2EB 22:17 → H2EA 01-22 09:25 → H1EA 01-23 10:52
PROVIDERS: ADMIT Obstetrics & Gynecology; ATTEND Obstetrics & Gynecology
PROC: 10D00Z1 Extraction of Products of Conception, Low, Open Approach (ICD-10-PCS; principal; 2017-01-22)
PROC: 0UB70ZZ Excision of Bilateral Fallopian Tubes, Open Approach (ICD-10-PCS; 2017-01-22)
DX: O14.14 Severe pre-eclampsia complicating childbirth (principal); Z68.41 Body mass index [BMI] 40.0-44.9, adult; O99.214 Obesity complicating childbirth; E66.01 Morbid (severe) obesity due to excess calories; O34.219 Maternal care for unspecified type scar from previous cesarean delivery; Z3A.36 36 weeks gestation of pregnancy; Z37.0 Single live birth; Z30.2 Encounter for sterilization
CPT/HCPCS: 59025; 80048; 80053; 80076; 81001; 82550; 82570; 82805; 84112; 84156; 84450; 84460; 84484; 84550; 85025; 85027; 86850; 86900; 86901; 88302; 88307; 90715; 93005; 96361; 96372; 96374; 96375; J0131; J0690; J1100; J1200; J1644; J2274; J2370; J2405; J2590; J3105; J3475; J7120